=== PATIENT | female | born 1995 | race American Indian/Alaskan Native ===

== ENCOUNTER 2019-01-14 08:36 | Emergency (ER) | payer MEDICAID ==
[2019-01-14 08:44] VITALS: BP 121/62
[2019-01-14 09:17] LABS: Bilirubin,Urine NEG (Negative); Blood,Urine NEG (Negative); Color,Urine Yellow (Yellow); Mucus,Urine 3+ /HPF; Urobilinogen,Urine < 2.0 mg/dL (<2.0)
[2019-01-14] MEDS ORDERED: ZOFRAN IV ONE (09:34)
--- NOTE | 2019-01-14 09:36 | Emergency Department Report ---
ED HPI - General Chief complaint: Nausea/Vomiting/Diarrhea Stated complaint: VOMITING/11WKS PREG Time Seen by Provider: 01/14/19 09:33 Source: patient Mode of arrival: Ambulatory Limitations: No Limitations - History of Present Illness Initial comments: Patient is a 23-year-old female who comes to the ER with vomiting since yesterday. Patient is 2 months . She states her last menstrual period was 1210. Patient states that she woke up this morning with bilateral lower quadrant pain. Patient denies dysuria. She did not denies vaginal bleeding. She denies vaginal discharge. She moved her bowels yesterday without difficulty. MD Complaint: abdominal pain -: Gradual, days(s) Radiation: LLQ, RLQ Severity: mild Quality: cramping Consistency: constant Improves with: none Worsens with: none Associated symptoms: denies other symptoms, nausea/vomiting. denies: vaginal bleeding, vaginal discharge, abdominal pain, dysuria, headache, vision changes, malaise, dysparuenia, rash, seizure, shortness of breath, syncope, weakness Vaginal bleeding: none :: Yes Number of weeks : 8 OB History - Current : no complications OB History - Previous Pregnancies: no complications Pre- care: followed by OB (DR GAXIOLA) - Related Data : 2 Para: 1 Ab: 0 Previous Rx's Medication Instructions Recorded Last Taken Type Ondansetron [Zofran Odt] 4 mg PO Q8HR #12 tab.rapdis 01/14/19 Unknown Rx Allergies Allergy/AdvReac Type Severity Reaction Status Date / Time No Known Allergies Allergy Verified 12/07/15 08:41 ED Review of Systems ROS: Stated complaint: VOMITING/11WKS PREG Other details as noted in HPI Comment: All other systems reviewed and negative Constitutional: denies: chills Eyes: denies: eye pain ENT: denies: ear pain Respiratory: denies: see HPI Cardiovascular: denies: as per HPI Gastrointestinal: as per HPI, abdominal pain, nausea, vomiting. denies: diarrhea, constipation, hematemesis, melena, hematochezia Genitourinary: as per HPI. denies: urgency, dysuria, frequency, hematuria, discharge Musculoskeletal: denies: back pain Skin: denies: rash Neurological: denies: headache Psychiatric: denies: anxiety Hematological/Lymphatic: denies: easy bleeding ED Past Medical Hx - Past Medical History Hx Hypertension: No Hx Congestive Heart Failure: No Hx Diabetes: No Hx Deep Vein Thrombosis: No Hx Renal Disease: No Hx Sickle Cell Disease: No Hx Seizures: No Hx Asthma: No Hx COPD: No Hx HIV: No - Surgical History Past Surgical History?: No - Family History Family history: no significant - Social History Smoking Status: Never Smoker Substance Use Type: Prescribed - Medications Home Medications: Home Medications Medication Instructions Recorded Confirmed Last Taken Type Ondansetron [Zofran Odt] 4 mg PO Q8HR #12 tab.rapdis 01/14/19 Unknown Rx ED Physical Exam - General Limitations: No Limitations General appearance: alert, in no apparent distress - Head Head exam: Present: atraumatic - Eye Eye exam: Present: normal appearance, PERRL - ENT ENT exam: Present: mucous membranes moist - Neck Neck exam: Present: normal inspection - Respiratory Respiratory exam: Present: normal lung sounds bilaterally - Cardiovascular Cardiovascular Exam: Present: regular rate - GI/Abdominal GI/Abdominal exam: Present: soft, normal bowel sounds. Absent: distended, tenderness, guarding, rebound, rigid, diminished bowel sounds - Extremities Exam Extremities exam: Present: normal inspection, full ROM - Back Exam Back exam: Absent: CVA tenderness (R), CVA tenderness (L) - Neurological Exam Neurological exam: Present: alert, oriented X3, CN II-XII intact, normal gait - Psychiatric Psychiatric exam: Present: normal affect, normal mood - Skin Skin exam: Present: warm, dry, intact ED Course Vital Signs 01/14/19 08:41 Temperature 99.4 F Pulse Rate 89 Blood Pressure 121/62 O2 Sat by Pulse 100 Oximetry ED Medical Decision Making - Lab Data Result diagrams: 01/14/19 09:38 01/14/19 09:38 - Radiology Data Radiology results: report reviewed - Medical Decision Making Labs 01/14/19 01/14/19 01/14/19 09:00 09:38 09:38 WBC 3.5 L RBC 3.56 L Hgb 10.7 Hct 31.6 MCV 89 MCH 30 MCHC 34 RDW 14.4 Plt Count 158 Sodium 134 L Potassium 3.3 L Chloride 97.7 L Carbon Dioxide 20 L Anion Gap 20 BUN 9 Creatinine 0.5 L Estimated GFR > 60 BUN/Creatinine Ratio 18 Glucose 98 Calcium 9.0 HCG, Quant Urine Color Yellow Urine Turbidity Slightly-cloudy Urine pH 7.0 Ur Specific [place] 1.030 Urine Protein 100 mg/dl Urine Glucose (UA) Neg Urine Ketones 20 Urine Blood Neg Urine Nitrite Neg Urine Bilirubin Neg Urine Urobilinogen < 2.0 Ur Leukocyte Esterase Neg Urine WBC (Auto) 2.0 Urine RBC (Auto) 11.0 U Epithel Cells (Auto) 15.0 H Urine Mucus 3+ 01/14/19 09:38 WBC RBC Hgb Hct MCV MCH MCHC RDW Plt Count Sodium Potassium Chloride Carbon Dioxide Anion Gap BUN Creatinine Estimated GFR BUN/Creatinine Ratio Glucose Calcium HCG, Quant 35987 H Urine Color Urine Turbidity Urine pH Ur Specific [place] Urine Protein Urine Glucose (UA) Urine Ketones Urine Blood Urine Nitrite Urine Bilirubin Urine Urobilinogen Ur Leukocyte Esterase Urine WBC (Auto) Urine RBC (Auto) U Epithel Cells (Auto) Urine Mucus My Active Orders 01/14/19 09:34 Saline lock STAT 01/14/19 09:35 US Bladder Residual/Pelvic Pre ROUTINE ULTRASOUND NOTED PT GIVEN KDUR FOR LOW K PT TAKING PO NO VOMITING IN ER AMBULATORY VSS Vital Signs 01/14/19 08:41 Temperature 99.4 F Pulse Rate 89 Blood Pressure 121/62 O2 Sat by Pulse 100 Oximetry REPEAT BY PROVIDER TEMP 98, HR 90, BP 130/66 PT BEING DC HOME WITH FOLLOW UP BY DR GAXIOLA. - Differential Diagnosis RO UTI; RO ECTOPIC Critical care attestation.: If time is entered above; I have spent that time in minutes in the direct care of this critically ill patient, excluding procedure time. ED Disposition Clinical Impression: , Nausea and vomiting during , Hypokalemia Disposition: DC-01 TO HOME OR SELFCARE Is pt being admited?: No Does the pt Need Aspirin: No Condition: Stable Instructions: (ED) Additional Instructions: EAT FOODS HIGH IN K MED ORDERED FOLLOW UP DR GAXIOLA IN AM Prescriptions: Ondansetron [Zofran Odt] 4 mg PO Q8HR #12 tab.rapdis Referrals: MUMTAZ GAXIOLA MD [Primary Care Provider] - 3-5 Days Time of Disposition: 12:50
[2019-01-14] MEDS ORDERED: NACL 0.9% 1000 ML 1,000 ML IV ONE (09:41)
[2019-01-14] MEDS ORDERED: NACL 0.9% 1000 ML 1,000 ML ONE (09:45)
[2019-01-14 10:09] LABS: BUN/Creatinine Ratio 18; Blood Urea Nitrogen 9 mg/dL (7-17); Hemolysis Index 1
[2019-01-14 10:10] LABS: Hematocrit 31.6 % (30.3-42.9); Hemoglobin 10.7 gm/dl (10.1-14.3); Mean Corpuscular HGB Conc 34 % (30-34); Mean Corpuscular Volume 89 fl (79-97); Platelet Count 158 K/mm3 (140-440); Red Blood Count 3.56 M/mm3 (3.65-5.03); Red Cell Distribution Width 14.4 % (13.2-15.2)
[2019-01-14] MEDS ORDERED: K-DUR PO ONE (10:24)
[2019-01-14] MEDS ORDERED: TYLENOL PO ONE (10:44)
--- NOTE | 2019-01-14 12:45 | Ultrasound Report ---
PROCEDURE: US OB <= 14 WEEKS FETUS TECHNIQUE: Early obstetrical ultrasound performed. Transabdominal and transvaginal imaging. HISTORY: ABD PAIN COMPARISON: None FINDINGS: There is an intrauterine gestational sac seen. It contains a small fetus. [place]-rump length measurement corresponds to gestational age of 11 weeks 3 days and ARAMIS of 07/30/2019. cardiac activity seen measured at 179 bpm. There is no subchorionic hemorrhage seen. Right ovary measures 2.2 cm. Left ovary measures 3.5 x 1.7 x 2.3 cm. IMPRESSION: There is a single live intrauterine with measurements corresponding to gestational age of 1 1 weeks 3 days and ARAMIS of 07/30/2019. This document is electronically signed by Farzaneh Grider MD., January 14 2019 12:42:38 PM ET
--- NOTE | 2019-01-14 12:47 | Ultrasound Report ---
PROCEDURE: US OB TRANSVAGINAL TECHNIQUE: Early obstetrical ultrasound performed. Transabdominal and transvaginal imaging. HISTORY: ABD PAIN COMPARISON: None FINDINGS: There is an intrauterine gestational sac seen. It contains a small fetus. [place]-rump length measurement corresponds to gestational age of 11 weeks 3 days and ARAMIS of 07/30/2019. cardiac activity seen measured at 179 bpm. There is no subchorionic hemorrhage seen. Right ovary measures 2.2 cm. Left ovary measures 3.5 x 1.7 x 2.3 cm. IMPRESSION: There is a single live intrauterine with measurements corresponding to gestational age of 1 1 weeks 3 days and ARAMIS of 07/30/2019. This document is electronically signed by Farzaneh Grider MD., January 14 2019 12:44:30 PM ET
== END 2019-01-14 13:23 | disposition home or self-care (01) ==
LOC: ED 08:36
DX: O26.891 Other specified pregnancy related conditions, first trimester (principal); E87.6 Hypokalemia; O21.8 Other vomiting complicating pregnancy; Z3A.11 11 weeks gestation of pregnancy
CPT/HCPCS: 36415; 76801; 76817; 80048; 81001; 84702; 85027; 96361; 96374; 99284; J2405; J7030